=== PATIENT | female | born 1955 | race Hispanic/Latino ===

== ENCOUNTER 2023-04-02 18:38 | Outpatient (RCR) | payer OTHER, SELFPAY | END 2023-04-02 23:59 | disposition home or self-care (01) | LOC: RPT 18:38 | PROVIDERS: ATTENDING PHYSICIAN Obstetrics & Gynecology; PRIMARYCARE PHYSICIAN Nurse Practitioner Adult Health | DX: R10.2 Pelvic and perineal pain (principal); N39.3 Stress incontinence (female) (male); N81.10 Cystocele, unspecified; N81.6 Rectocele; Z73.6 Limitation of activities due to disability | CPT/HCPCS: 97110; 97112; 97140 ==

== ENCOUNTER 2023-04-30 18:15 | Outpatient (RCR) | payer OTHER, SELFPAY | END 2023-04-30 23:59 | disposition home or self-care (01) | LOC: RPT 18:15 | PROVIDERS: ATTENDING PHYSICIAN Obstetrics & Gynecology; PRIMARYCARE PHYSICIAN Nurse Practitioner Adult Health | DX: R10.2 Pelvic and perineal pain (principal); N39.3 Stress incontinence (female) (male); N81.10 Cystocele, unspecified; N81.6 Rectocele | CPT/HCPCS: 97110; 97140 ==

== ENCOUNTER 2023-05-15 10:02 | Emergency (ER) | payer OTHER, SELFPAY ==
[2023-05-15 10:17] VITALS: BP 115/63
--- NOTE | 2023-05-15 11:36 | ED.GENMED ---
History of Present Illness
General
Chief Complaint: Musculo-Skeletal Complaint
Source: patient and family
Exam Limitations: none
Time Seen by Provider: 05/15/23 10:25
Nursing documentation reviewed up to this point in time: agreed with
Travel History
Have you had any contact with someone who has COVID-19?: No
Do you have any symptoms of coronavirus? Fever > 100 degrees, chills, cough, shortness of breath, sore throat, loss of taste or smell, muscle aches, or headache?: No
History of Present Illness
History of Present Illness:
68-year-old female with past medical history of diabetes GERD hypertension asthma presenting to the emergency department today with concerns of a trip and fall landing on her right forearm prior to arrival immediately feeling pain to the wrist
denies any additional injuries during the event. No head trauma not on blood thinners
Past History
Past History
ED Past Medical History: Asthma, GERD, HTN, IDDM, Psychiatric (Depression) and Other (Gallstones, Diverticulitis)
ED Past Surgical History: , Gynecological (prolapsed bladder, hyster), Orthopedic (Hand surgery) and Other (right breast lumpectomy, cataracts)
Social History
Tobacco: Former smoker (21-[id number]-chvg history)
Alcohol: None
Drug: None
Personal:
Living: with family
Family History
Family History: Other
Review of Systems
Review of Systems
Allergies reviewed?: Yes
All Other Systems: ROS reviewed and negative except as documented in HPI and ROS
Phy Exam
Physical Exam
Physical Exam:
GENERAL: Alert , in no apparent distress
EYE: pupils equal and reactive
NECK: Supple, no significant adenopathy.
ENT: o/p clr, mmm.
CARDIAC: Regular rate and rhythm .
LUNGS: Clear breath sounds bilaterally, no acute respiratory distress, no wheezes/rales/rhonchi
ABDOMEN: Soft, without focal tenderness, no r/g, no cvat
NEUROLOGICAL: Alert and oriented, no focal neuro deficits
SKIN: Warm and dry, skin intact.
MUSCULOSKELETAL: Swelling tenderness palpation to the distal right forearm and wrist region. Otherwise good range of motion and strength of the fingers and elbow., well perfused.
PSYCH: Normal and appropriate interaction.
Course
Orders/Labs/Results
Orders:
Orders
05/15/23 10:22
Forearm, Right 2 View [CR Forearm - Right 2 View] Urgent
Comment:
Reason For Exam: injury
05/15/23 11:35
Oxycodone/Acetaminophen [Percocet 5/325] 1 tablet PO NOW STA
Vital Signs
Initial and Last Documented VS:
Initial Vital Signs
Temp Pulse Resp BP Pulse Ox
98.9 F 77 22 115/63 98
05/15/23 10:17 05/15/23 10:17 05/15/23 10:17 05/15/23 10:17 05/15/23 10:17
Last Documented Vital Signs
Temp Pulse Resp BP Pulse Ox
98.9 F 77 22 115/63 98
05/15/23 10:17 05/15/23 10:17 05/15/23 10:17 05/15/23 10:17 05/15/23 10:17
Procedures
Splinting/Sling Placement
Right Wrist:
Procedure completed by: Me
Pre-splint extermity exam: good alignment
Type of splint: sugar-tong
Splint material: fiberglass
Splint checked by provider?: Yes
Type of sling: sling fitted
Normal distal neurovascular exam?: Yes
MDM/Problems Addressed
MDM/Problems Addressed:
68-year-old female presenting to the emergency department today with concerns of right-sided wrist discomfort after ground-level fall. Patient was found to have a distal radius and ulna fracture. Patient was splinted and advised for close
orthopedic follow-up. Return precautions given. Otherwise no signs of emergent injury.
*Critical Care Note
Total Time (30-74mins, 75-104mins- exclusive of procedures): Not Applicable
ED Attending Note
-
Portions of this chart may have been created with voice recognition software.� Occasional wrong word or��sound alike� substitutions may have occurred due to the inherent limitations of voice recognition software.
Discharge Plan
Departure
Patient Disposition: Home (Routine Discharge)
Date of Disposition: 05/15/23
Time of Disposition: 11:39
Patient with high blood pressure during this ER visit?: No
Condition: Good
Covid-19: Not Applicable
Discharge Problem:
Closed fracture distal radius and ulna
Instructions: Wrist Fracture (DC)
Prescriptions:
New
oxycodone-acetaminophen [Percocet] 5-325 mg tablet
1 tab PO Q6H PRN (Reason: Pain) Qty: 7 0RF
No Action
prednisone 20 MG tablet
40 mg PO DAILY Qty: 8 0RF
acetaminophen [Tylenol] 325 mg Tablet
650 mg PO Q4H PRN (Reason: pain)
metformin 1,000 mg Tablet
1,000 mg PO BID
triamcinolone acetonide [Nasacort] 55 mcg Aerosol,[place]
2 spray INTRANASAL DAILY
Rx Instructions:
administer into each nostril
gabapentin 300 mg Capsule
300 mg PO TID
albuterol sulfate [Ventolin HFA] 90 mcg/actuation Hfa Aerosol Inhaler
2 puff INHALATION PRN PRN (Reason: wheezing, SOB)
insulin glargine [Lantus Solostar U-100 Insulin] 100 unit/mL (3 mL) Insulin Pen
50 unit SC BID
Januvia 50 mg Tablet
50 mg PO DAILY
lisinopril 10 mg Tablet
10 mg PO DAILY
omeprazole 20 mg Tablet,Delayed Release (Dr/Ec)
20 mg PO DAILY
Referrals:
Jose Cruz MD [Family Provider] -
Shine Talley DO [Active] -
Activity Restrictions/Additional Instructions:
You came to the emergency department today for concerns of a wrist injury you are found to have a distal radius and ulna fracture. Please remain in the splint and take pain medication as needed until follow-up with orthopedics within 1 to 2 weeks.
Return to the emergency department for any worsening, new or concerning symptoms.
[2023-05-15] MEDS: PERCOCET 5/325 1 TABLET PO (11:44)
== END 2023-05-15 12:00 | disposition home or self-care (01) ==
LOC: EMR 10:02
PROVIDERS: EMERGENCY PHYSICIAN Emergency Medicine; FAMILY PHYSICIAN Family Medicine
DX: S52.501D Unspecified fracture of the lower end of right radius, subsequent encounter for closed fracture with routine healing (principal); S52.611A Displaced fracture of right ulna styloid process, initial encounter for closed fracture; W01.0XXA Fall on same level from slipping, tripping and stumbling without subsequent striking against object, initial encounter; E11.36 Type 2 diabetes mellitus with diabetic cataract; K21.9 Gastro-esophageal reflux disease without esophagitis; F32.A Depression, unspecified; K57.92 Diverticulitis of intestine, part unspecified, without perforation or abscess without bleeding; I10 Essential (primary) hypertension; M19.90 Unspecified osteoarthritis, unspecified site; J45.909 Unspecified asthma, uncomplicated; Z79.4 Long term (current) use of insulin; Z87.891 Personal history of nicotine dependence
CPT/HCPCS: 99283; 29125; 73090

== ENCOUNTER 2023-05-20 06:24 | Day surgery (SDC) | payer OTHER, SELFPAY ==
[2023-05-20] VITALS (7 sets, daily range): BP systolic 111–144; BP diastolic 60–76; BMI 44.1
[2023-05-20 13:49] LABS: Glucose - Point of Care 88 mg/dl (70-99)
[2023-05-20] MEDS: TYLENOL 1000 MG PO (14:16)
[2023-05-20] MEDS: CELEBREX 200 MG PO (14:16)
[2023-05-20] MEDS: NORMOSOL-R 1000 IV (14:23)
[2023-05-20 14:43] LABS: Hematocrit 36.7 % (37.0-47.0); Hemoglobin 12.7 g/dL (12.0-16.0); Mean Corp Hgb Conc. 34.6 g/dL (33.0-37.0); Mean Corpuscular Hgb 30.5 pg (27.0-31.0); Mean Platelet Volume 10.1 fL (7.4-10.4); Platelet Count 138 10^3/uL (130-400); Red Blood Cell Count 4.17 10^6/uL (4.20-5.40); Red Cell Dist. Width 13.4 % (11.5-14.5); White Blood Cell Count 6.2 10^3/uL (4.8-10.8)
[2023-05-20 14:55] LABS: ALT (SGPT) 40 U/L (0-35); AST (SGOT) 49 U/L (14-36); Albumin 4.2 g/dl (3.5-5.0); Alkaline Phosphatase 68 U/L (38-126); Blood Urea Nitrogen 12 mg/dl (7-17); Calcium 9.1 mg/dl (8.4-10.2); Carbon Dioxide 30 mmol/L (22-30); Chloride 104 mmol/L (98-107); Estimated Creatinine Clearance 53 ml/min; Glucose 71 mg/dl (70-99); Potassium 4.3 mmol/L (3.5-5.1); Sodium 138 mmol/L (135-145); Total Bilirubin 0.8 mg/dl (0.2-1.3); Total Protein 7.3 g/dl (6.3-8.2); eGFR > 60.00
[2023-05-20 16:46] LABS: Glucose - Point of Care 70 mg/dl (70-99)
== END 2023-05-20 18:15 | disposition home or self-care (01) ==
LOC: SDS 06:24
PROVIDERS: ATTENDING PHYSICIAN Orthopaedic Surgery Hand Surgery
DX: S52.571A Other intraarticular fracture of lower end of right radius, initial encounter for closed fracture (principal); X58.XXXA Exposure to other specified factors, initial encounter
CPT/HCPCS: 25609; 80053; 82962; 85027; 93005; C1713

== ENCOUNTER → 2023-09-24 09:38 | Outpatient (REF) | payer OTHER, SELFPAY | LOC: CLINIC 09:38 | PROVIDERS: ATTENDING PHYSICIAN Internal Medicine | DX: E11.9 Type 2 diabetes mellitus without complications (principal) | CPT/HCPCS: 36415; 73523; 83036 ==

== ENCOUNTER → 2024-01-25 08:03 | Outpatient (REF) | payer OTHER, SELFPAY ==
[2024-01-25 11:17] LABS: Glycohemoglobin (HgbA1c) 9.8 % (4.0-5.6)
== END ==
LOC: HWLAB 08:03
PROVIDERS: ATTENDING PHYSICIAN Internal Medicine
DX: E11.9 Type 2 diabetes mellitus without complications (principal)
CPT/HCPCS: 36415; 83036

== ENCOUNTER → 2024-05-20 14:01 | Outpatient (REF) | payer OTHER, SELFPAY ==
[2024-05-20 14:54] LABS: % Basophils 0.7 % (0-2); % Eosinophils 4.8 % (0-6); % Immature Granulocytes 0.2 % (0-0.5); % Lymphocytes 32.1 % (20.5-51.1); % Monocytes 6.9 % (1.7-9.3); % Neutrophils 55.3 % (42.2-75.2); Absolute Eosinophils 0.3 10^3/uL (0-0.7); Absolute Lymphocytes 1.9 10^3/uL (1.2-3.4); Absolute Monocytes 0.4 10^3/uL (0.1-0.6); Absolute Neutrophils 3.2 10^3/uL (1.4-6.5); Hematocrit 38.6 % (37.0-47.0); Hemoglobin 13.3 g/dL (12.0-16.0); Mean Corp Hgb Conc. 34.5 g/dL (33.0-37.0); Mean Corpuscular Hgb 30.4 pg (27.0-31.0); Mean Corpuscular Volume 88.1 fL (81.0-99.0); Mean Platelet Volume 9.8 fL (7.4-10.4); Nucleated Red Blood Cells % 0 %; Platelet Count 159 10^3/uL (130-400); Red Blood Cell Count 4.38 10^6/uL (4.20-5.40); Red Cell Dist. Width 13.1 % (11.5-14.5); White Blood Cell Count 5.8 10^3/uL (4.8-10.8)
[2024-05-20 15:08] LABS: ALT (SGPT) 44 U/L (0-35); AST (SGOT) 34 U/L (14-36); Albumin 4.8 g/dl (3.5-5.0); Alkaline Phosphatase 71 U/L (38-126); Blood Urea Nitrogen 15 mg/dl (7-17); Calcium 9.3 mg/dl (8.4-10.2); Carbon Dioxide 32 mmol/L (22-30); Chloride 97 mmol/L (98-107); Glucose 224 mg/dl (70-99); Potassium 4.5 mmol/L (3.5-5.1); Sodium 137 mmol/L (135-145); Total Bilirubin 1.5 mg/dl (0.2-1.3); Total Protein 8.4 g/dl (6.3-8.2); eGFR > 60.00
[2024-05-20 15:18] LABS: Troponin I < 0.012 ng/ml
[2024-05-21 12:31] LABS: Glycohemoglobin (HgbA1c) 11.2 % (4.0-5.6)
== END ==
LOC: CLINIC 14:01
PROVIDERS: ATTENDING PHYSICIAN Family Medicine
DX: R07.81 Pleurodynia (principal); R05.3 Chronic cough; R55 Syncope and collapse
CPT/HCPCS: 36415; 71046; 71100; 80053; 83036; 84484; 85025; 93005

== ENCOUNTER → 2025-03-06 10:11 | Outpatient (REF) | payer OTHER, SELFPAY ==
[2025-03-06 12:48] LABS: C-Reactive Protein 7.00 mg/L (0.0-10.00)
[2025-03-06 14:00] LABS: Glycohemoglobin (HgbA1c) 10.4 % (4.0-5.9)
[2025-03-07 11:19] LABS: Syphilis/T. pallidum Ab Reflex Negative (Negative)
[2025-03-07 19:42] LABS: HLA-B27 Negative (Negative)
[2025-03-07 22:45] LABS: ds-DNA Ab, IgG Reflex To Titer 5 IU (0-24)
[2025-03-08 02:51] LABS: Complement Act., Total (CH50) >95.0 U/mL (38.7-89.9)
[2025-03-08 06:22] LABS: Serine Protease-3, IgG 0 AU/mL (0-19); Smith/RNP (ENA), IgG 2 Units (0-19)
[2025-03-08 08:25] LABS: Jo-1 Antibodies 1 AU/mL (0-40); SSA 52 (Ro)(ENA) Ab, IgG 1 AU/mL (0-40); SSA 60 (Ro)(ENA) Ab, IgG 0 AU/mL (0-40); SSB (La)(ENA) Ab, IgG 0 AU/mL (0-40)
[2025-03-08 16:12] LABS: Lyme Ab Western Blot IgG Negative (Negative); Lyme Ab Western Blot IgM Positive (Negative)
[2025-03-08 23:17] LABS: HIV-1 Quan NAAT Interpretation Not Detected (Not Detected); HIV-1 Quant NAAT (copies/ml) Not Detected cpy/mL; HIV-1 Quant NAAT (log copy/mL) Not Detected log cpy/mL
[2025-03-09 02:05] LABS: ANA, IgG Reflex to HEp-2 None Detected (None Detected)
[2025-03-09 08:21] LABS: Purkinje Cell/Neuronal Nuc IgG None Detected (None Detected)
== END ==
LOC: CLINIC 10:11
PROVIDERS: ATTENDING PHYSICIAN Ophthalmology; FAMILY PHYSICIAN Internal Medicine
DX: E11.9 Type 2 diabetes mellitus without complications (principal); H20.00 Unspecified acute and subacute iridocyclitis
CPT/HCPCS: 36415; 82164; 83036; 83090; 83516; 85610; 85613; 85652; 85730; 86021; 86038; 86140; 86147; 86162; 86215; 86225; 86235; 86255; 86430; 86480; 86617; 86780; 86812; 87389; 87536